=== PATIENT | male | born 1955 | race Asian ===

== ENCOUNTER 2020-12-14 11:25 | Inpatient (IN) | payer OTHER, SELFPAY ==
--- NOTE | 2020-12-14 12:11 | ER ---
Nurse's Notes [facility] Name: Meir Narayanan Age: 65 yrs Sex: Male : 1955 Arrival Date: 12/14/2020 Time: 11:38 Bed 16 Private MD: Diagnosis: ST elevation (STEMI) myocardial infarction of unspecified site-Anterolateral Presentation: 12/14 12:07 Acuity: DALILA 1 ss 12:07 Chief complaint: EMS states: "pt reported passing out prior to arrival while fishing. jd3 he is reporting chest pain.". Coronavirus screen: At this time, the client does not indicate any symptoms associated with coronavirus-19. Ebola Screen: Patient negative for fever greater than or equal to 101.5 degrees Fahrenheit, and additional compatible Ebola Virus Disease symptoms. Initial Sepsis Screen: Does the patient meet any 2 criteria? No. Patient's initial sepsis screen is negative. Does the patient have a suspected source of infection? No. Patient's initial sepsis screen is negative. Risk Assessment: Do you want to hurt yourself or someone else? Patient reports no desire to harm self or others. Onset of symptoms was December 14, 2020. 12:07 Method Of Arrival: EMS: [facility] jd3 Historical: - Allergies: 12:27 No Known Allergies; jd3 - PMHx: 12:27 prostate cancer; jd3 - Immunization history:: Adult Immunizations unknown. - Family history:: not pertinent. - Social history:: Smoking status: unknown. - History obtained from: EMS. Screenin:31 Abuse screen: Denies threats or abuse. Nutritional screening: No deficits noted. jd3 Tuberculosis screening: No symptoms or risk factors identified. Fall Risk IV access (20 points). Ambulatory Aid- None/Bed Rest/Nurse Assist (0 pts). Gait- Normal/Bed Rest/Wheelchair (0 pts) Mental Status- Oriented to own ability (0 pts). Total Valdez Fall Scale indicates No Risk (0-24 pts). Assessment: 12:07 Reassessment: Dr. Singh on phone with Dr. Stewart at this time discussing plan of care. ss 12:07 General: Appears uncomfortable, Behavior is cooperative, anxious, restless. Pain: jd3 Complains of pain in chest. Neuro: Level of Consciousness is awake, alert, obeys commands, Oriented to person, place, time, situation. Cardiovascular: Capillary refill Rhythm is irregular. Respiratory: Reports shortness of breath at rest Airway is patent Respiratory effort is even, unlabored, Respiratory pattern is regular, symmetrical. GI: No signs and/or symptoms were reported involving the gastrointestinal system. : No signs and/or symptoms were reported regarding the genitourinary system. EENT: No signs and/or symptoms were reported regarding the EENT system. Derm: Skin is intact, Skin is diaphoretic, Skin is normal, Skin temperature is warm. Musculoskeletal: Circulation, motion, and sensation intact. Range of motion: intact in all extremities. 12:15 Reassessment: Patient and/or family updated on plan of care and expected duration. Pain jd3 level reassessed. Patient is alert, oriented x 3, equal unlabored respirations, skin warm/dry/pink. Patient states feeling better. 12:23 Reassessment: Patient and/or family updated on plan of care and expected duration. Pain jd3 level reassessed. Patient is alert, oriented x 3, equal unlabored respirations, skin warm/dry/pink. worm farm laborer team at bedside Patient states symptoms have improved. 12:38 Reassessment: Patient and/or family updated on plan of care and expected duration. Pain jd3 level reassessed. Patient is alert, oriented x 3, equal unlabored respirations, skin warm/dry/pink. pt to worm farm laborer with worm farm laborer nurse. Vital Signs: 12:09 BP 119 / 82; Pulse 71; Resp 20; Temp 98.0(O); Pulse Ox 100% ; Weight 89.1 kg; Height 5 ss ft. 10 in. (177.80 cm); 12:30 BP 125 / 82; Pulse 67; Resp 20 S; Pulse Ox 99% on R/A; jd3 12:09 Body Mass Index 28.18 (89.10 kg, 177.80 cm) ED Course: 11:38 Patient arrived in ED. ss 11:39 Bhavin Stewart MD is Attending Physician. rn 11:51 Juan Gallagher RN is Primary Nurse. jd3 12:07 Triage completed. ss 12:07 Maintain EMS IV. Dressing intact. Good blood return noted. Site clean \\T\\ dry. Gauge \\T\\ ramo 3 site: 20 G right AC. 12:08 Patient has correct armband on for positive identification. Placed in gown. Bed in low mh5 position. Call light in reach. Side rails up X2. Warm blanket given. Pillow given. monitoring and evaluation advisor on. Pulse ox on. NIBP on. 12:08 Missed attempt(s): 20 gauge in left antecubital area. 5 12:08 Initial lab(s) drawn, by ED staff, sent to lab. EKG done, by ED staff, reviewed by 5 Bhavin Stewart MD. 12:09 Arm band placed on right wrist. ss 12:10 Jaylen Purvis is Hospitalizing Provider. rn 12:14 Inserted saline lock: 22 gauge in left forearm, using aseptic technique. mb4 12:16 XRAY Chest (1 view) In Process Unspecified. EDMS 12:39 No provider procedures requiring assistance completed. Patient admitted, IV remains in jd3 place. Administered Medications: 12:07 Drug: Aspirin Chewable Tablet 324 mg Route: PO; jd3 12:40 Follow up: Response: No adverse reaction jd3 12:09 CANCELLED (Duplicate Order): Metoprolol TARTRATE 50 mg PO once rn 12:09 Drug: Metoprolol 25 mg Route: PO; jd3 12:40 Follow up: Response: No adverse reaction jd3 12:10 Drug: NS 0.9% 500 ml Route: IV; Rate: bolus; Site: right antecubital; jd3 12:40 Follow up: Response: No adverse reaction; IV Status: Completed infusion; IV Intake: jd3 500ml 12:10 Drug: Heparin ([place]-Bolus No thrombolytic) - HEParin 60 units/kg {Co-Signature: ld1 jd3 (Barbara Crawford RN).} Route: IVP; Site: right antecubital; 12:40 Follow up: Response: No adverse reaction jd3 12:10 Drug: Heparin ([place] Drip) 12 units/kg/hr - (HEParin 85062 units, D5W 500 ml) jd3 {Co-Signature: ld1 (Barbara Crawford RN).} Route: IV; Rate: calculated rate; Site: right antecubital; 12:40 Follow up: Response: No adverse reaction; IV Status: Infusion continued upon admission jd3 12:11 Drug: fentaNYL (PF) 50 mcg Route: IVP; Site: left forearm; jd3 12:40 Follow up: Response: No adverse reaction; RASS: Alert and Calm (0) jd3 12:11 Drug: Zofran (Ondansetron) 4 mg Route: IVP; Site: left forearm; jd3 12:40 Follow up: Response: No adverse reaction jd3 Intake: 12:40 IV: 500ml; Total: 500ml. jd3 Outcome: 12:11 Decision to Hospitalize by Provider. rn 12:38 Patient left the ED. jd3 12:39 Admitted to Financial Sales Professional accompanied by nurse, via stretcher, on monitor, with chart, Other jd3 report given to Ramandeep Talbot RN 12:39 Condition: stable 12:39 Instructed on the need for admit. Signatures: Dispatcher [employer] EDBhavin Truong MD MD rn Smirch, Shelby, RN RN ss Martinez, [facility] Juan Gallagher RN RN jd3 Baxter, Mackenzie 4 Barbara Crawford RN ld1 Corrections: (The following items were deleted from the chart) 12:30 12:23 Reassessment: worm farm laborer team at bedside jd3 jd3
[2020-12-14 12:12] LABS: Absolute Lymphocytes (CBC) 0.7 K/uL (0.7-4.9); Basophils % 0.2 % (0-1.3); Hematocrit 44.2 % (39.6-49.0); Lymphocytes % 5.7 % (15.3-44.8); MPV 7.6 fL (7.6-11.3); RBC Red Blood Cell Count 5.07 M/uL (4.33-5.43)
--- NOTE | 2020-12-14 12:12 | EDPHYS ---
Physician Documentation [facility] Name: Meir Narayanan Age: 65 yrs Sex: Male : 1955 Arrival Date: 12/14/2020 Time: 11:38 Bed 16 Private MD: ED Physician Bhavin Stewart HPI: 12/14 11:44 This 65 yrs old Male presents to ER via Unassigned with complaints of Syncope. rn 11:44 The patient has experienced syncope. Onset: The symptoms/episode began/occurred just rn prior to arrival. Duration: This was a single episode. Context: occurred outdoors, . Associated injury: The patient did not suffer any apparent associated injury. Current symptoms: Chest pain. Unable to obtain HPI due to a language barrier being present. It is unknown whether or not the patient has had similar symptoms in the past. It is unknown whether or not the patient has recently seen a physician. Brought in by EMS, per family who is interpreting at the scene, patient had a syncopal episode and complained of chest pain while fishing. Unknown previous medical problems or medications. Patient complains only of chest pain at this moment and states does not speak Spanish.. Historical: - Allergies: 12:27 No Known Allergies; jd3 - PMHx: 12:27 prostate cancer; jd3 - Immunization history:: Adult Immunizations unknown. - Family history:: not pertinent. - Social history:: Smoking status: unknown. - History obtained from: EMS. ROS: 11:44 Unable to obtain ROS due to patient's inability to understand questions. rn Exam: 11:44 Constitutional: This is a well developed, well nourished patient who is awake, alert, rn moaning and grabbing central chest Head/Face: Normocephalic, atraumatic. Eyes: Pupils equal round and reactive to light, extra-ocular motions intact. Lids and lashes normal. Conjunctiva and sclera are non-icteric and not injected. Cornea within normal limits. Periorbital areas with no swelling, redness, or edema. ENT: Dry mucous membranes Chest/axilla: Normal chest wall appearance and motion. Nontender with no deformity. No lesions are appreciated. Cardiovascular: Regular rate and rhythm. No pulse deficits. Respiratory: No increased work of breathing, no retractions or nasal flaring. Abdomen/GI: Soft, non-tender, nondistended Skin: Warm, dry MS/ Extremity: Pulses equal, no cyanosis. Neurovascular intact. Full, normal range of motion. Equal circumference. Neuro: Awake and alert, GCS 15 Vital Signs: 12:09 BP 119 / 82; Pulse 71; Resp 20; Temp 98.0(O); Pulse Ox 100% ; Weight 89.1 kg; Height 5 ss ft. 10 in. (177.80 cm); 12:30 BP 125 / 82; Pulse 67; Resp 20 S; Pulse Ox 99% on R/A; jd3 12:09 Body Mass Index 28.18 (89.10 kg, 177.80 cm) ss MDM: 11:39 Patient medically screened. rn 12:01 ED course: Pt with STEMI on ECG, paging cardiology. . rn 12:06 Differential Diagnosis: cardiac arrhythmia, STEMI, NSTEMI, dissection. ED course: rn Drophammer Operator line used patient reports substernal chest pain, nonradiating not improving, no known history of KS, no blood thinners.. 12:09 Data reviewed: vital signs, nurses notes, EKG, and as a result, I will admit patient. rn Counseling: I had a detailed discussion with the patient and/or guardian regarding: the historical points, exam findings, and any diagnostic results supporting the discharge/admit diagnosis, the need for further work-up and treatment in the hospital. ED course: Consulted with Dr. Willoughby, notified of STEMI, is activating Benefits Consulting Analyst right now, requests aspirin beta-gabe and heparin, does not want Plavix at this time.. 12:10 Admission orders: after a detailed discussion of the patient's condition and case, the buttermaker continuous churn orders are written by me. 12:12 ED course: Notify Dr. Purvis of admission, patient going to Benefits Consulting Analyst right now with Dr. rigoberto Willoughby. 12:36 ED course: Patient currently pain-free, awaiting Benefits Consulting Analyst. rn 12/14 11:43 Order name: Basic Metabolic Panel rn 12/14 11:43 Order name: CBC with Diff rn 12/14 11:43 Order name: LFT's rn 12/14 11:43 Order name: Magnesium rn 12/14 11:43 Order name: NT PRO-BNP rn 12/14 11:43 Order name: PT-INR; Complete Time: 12:27 rn 12/14 11:43 Order name: Troponin (emerg Dept Use Only) rn 12/14 11:43 Order name: XRAY Chest (1 view); Complete Time: 12:27 rn 12/14 11:43 Order name: EKG; Complete Time: 11:44 rn 12/14 11:43 Order name: Cardiac monitoring; Complete Time: 12:32 rn 12/14 11:43 Order name: EKG - Nurse/Tech; Complete Time: 12:32 rn 12/14 11:43 Order name: IV Saline Lock; Complete Time: 12:32 rn 12/14 11:43 Order name: Labs collected and sent; Complete Time: 12:32 rn 12/14 11:43 Order name: O2 Per Protocol; Complete Time: 11:52 rn 12/14 11:43 Order name: O2 Sat Monitoring; Complete Time: 11:52 rn Administered Medications: 12:07 Drug: Aspirin Chewable Tablet 324 mg Route: PO; jd3 12:40 Follow up: Response: No adverse reaction jd3 12:09 CANCELLED (Duplicate Order): Metoprolol TARTRATE 50 mg PO once rn 12:09 Drug: Metoprolol 25 mg Route: PO; jd3 12:40 Follow up: Response: No adverse reaction jd3 12:10 Drug: NS 0.9% 500 ml Route: IV; Rate: bolus; Site: right antecubital; jd3 12:40 Follow up: Response: No adverse reaction; IV Status: Completed infusion; IV Intake: jd3 500ml 12:10 Drug: Heparin ([place]-Bolus No thrombolytic) - HEParin 60 units/kg {Co-Signature: ld1 jd3 (Barbara Crawford RN).} Route: IVP; Site: right antecubital; 12:40 Follow up: Response: No adverse reaction jd3 12:10 Drug: Heparin ([place] Drip) 12 units/kg/hr - (HEParin 79730 units, D5W 500 ml) jd3 {Co-Signature: ld1 (Barbara Crawford RN).} Route: IV; Rate: calculated rate; Site: right antecubital; 12:40 Follow up: Response: No adverse reaction; IV Status: Infusion continued upon admission jd3 12:11 Drug: fentaNYL (PF) 50 mcg Route: IVP; Site: left forearm; jd3 12:40 Follow up: Response: No adverse reaction; RASS: Alert and Calm (0) jd3 12:11 Drug: Zofran (Ondansetron) 4 mg Route: IVP; Site: left forearm; jd3 12:40 Follow up: Response: No adverse reaction jd3 Disposition Summary: 12/14/20 12:11 Hospitalization Ordered Hospitalization Status: Inpatient Admission rn Provider: Jaylen Purvis rn Location: Intensive Care Unit rn Condition: Stable rn Problem: new rn Symptoms: are unchanged rn Bed/Room Type: Standard rn Room Assignment: rn Diagnosis - ST elevation (STEMI) myocardial infarction of unspecified site - Anterolateral rn Forms: - Medication Reconciliation Form rn - SBAR form calcine furnace tender time excluding procedures: 12:10 Critical care time: Bedside Care: 30 minutes, Consultation: 5 minutes. Total time: 35 rn minutes Signatures: Dispatcher [employer] EDMS Bhavin Stewart MD MD rn Smirch, Shelby, RN RN ss Davies, Jonathon, RN RN jd3 Barbara Crawford RN ld1 Corrections: (The following items were deleted from the chart) 12:03 11:44 Head Brain Wo Cont+CT.RAD.BRZ ordered. EDMS EDMS 12:03 11:44 Angio Aorta For Dissection+CT.RAD.BRZ ordered. EDMS EDMS 12:09 12:08 Metoprolol TARTRATE 50 mg PO once ordered. rn rn
[2020-12-14 12:21] LABS: Protime INR 0.96
--- NOTE | 2020-12-14 12:24 | RAD REPORT ---
EXAM DESCRIPTION: RAD - Chest Single View - 12/14/2020 12:16 pm CLINICAL HISTORY: CHEST PAIN Chest pain. COMPARISON: No comparisons FINDINGS: Portable technique limits examination quality. Interstitial lung markings are slightly prominent which can be seen in mild interstitial pulmonary ed connor or infection/bronchitis. The heart is mildly prominent in size. No displaced fractures.
[2020-12-14] MEDS ORDERED: HEPARIN/D5W 25,000 UNIT/500 ML BAG IV ONE (12:26)
[2020-12-14] MEDS ORDERED: HEPARIN 5000 UNIT/ML 1 ML VIAL ONE (12:26)
[2020-12-14] MEDS ORDERED: NA CHLORIDE 0.9% 500 ML ONE ×3 (12:26→13:32)
[2020-12-14] MEDS ORDERED: ASPIRIN 81 MG CHEWABLE TABLET ONE (12:26)
[2020-12-14 12:34] LABS: ALT/SGPT 41 U/L (12-78); AST/SGOT 24 U/L (15-37); Albumin 3.8 g/dL (3.4-5.0); Alkaline Phosphatase 55 U/L (45-117); BUN Blood Urea Nitrogen 23 mg/dL (7-18); Bicarbonate 26 mmol/L (21-32); Bilirubin Direct < 0.1 mg/dL (0-0.2); Bilirubin Total 0.4 mg/dL (0.2-1.0); Glucose Level 186 mg/dL (74-106); Magnesium 2.2 mg/dL (1.8-2.4); NT PRO-BNP 98 pg/mL (<125); Potassium 3.8 mmol/L (3.5-5.1); Protein, Total 7.9 g/dL (6.4-8.2); Sodium Level 142 mmol/L (136-145)
[2020-12-14] MEDS ORDERED: FENTANYL CITR 100 MCG/2 ML ONE ×2 (12:34→12:39)
[2020-12-14] MEDS ORDERED: METOPROLOL TAR 25 MG TAB ONE (12:34)
[2020-12-14] MEDS ORDERED: ONDANSETRON 4 MG/2 ML VIAL ONE ×2 (12:34→20:53)
[2020-12-14] MEDS ORDERED: MIDAZOLAM HCL 2 MG/2 ML INJ ONE (12:39)
[2020-12-14] MEDS ORDERED: LIDOCAINE 1% 20 ML MDV ONE (12:40)
[2020-12-14] MEDS ORDERED: NA CHLORIDE 0.9% 50 ML ONE ×2 (12:40→13:32)
[2020-12-14] MEDS ORDERED: ATROPINE SULF 1 MG/10 ML SYR IV ONE (12:40)
[2020-12-14] MEDS ORDERED: HEPA 1000U/500MLS 1,000 UNIT/500 ML BAG IV ONE (12:40)
[2020-12-14 12:42] LABS: Troponin (Emerg Dept Use Only) 0.66 ng/mL (0.0-0.045)
[2020-12-14 12:49] LABS: Blood Morphology Comment NOT SEEN (NOT SEEN); Platelet Estimate ADEQ
[2020-12-14] MEDS ORDERED: propofoL 200 MG/20 ML VIAL IV ONE ×2 (13:29→14:11)
[2020-12-14 14:55] VITALS: BMI 28.1
[2020-12-14] MEDS ORDERED: NITROGLYCERIN 0.4 MG/TAB SL ONE (14:57)
[2020-12-14] MEDS ORDERED: MORPHINE 4 MG/ML SYR ONE ×3 (15:11→20:53)
[2020-12-14] MEDS ORDERED: ACETAMINOPHEN 325 MG TABLET PO PRN (15:45)
[2020-12-14] MEDS ORDERED: NITROGLYCERIN 0.4 MG/TAB SL PRN (15:47)
[2020-12-14] MEDS ORDERED: PRASUGREL (EFFIENT) 10 MG TAB PO ONE (16:00)
[2020-12-14] MEDS ORDERED: MORPHINE 2 MG/ML SYR IV PRN (16:01)
[2020-12-14] MEDS ORDERED: ZOLPIDEM TARTRATE 5 MG TABLET PO PRN ×2 (16:02)
[2020-12-14] MEDS: MORPHINE 4 MG/ML SYR IV PRN ×2 (16:09→20:34)
[2020-12-14] MEDS: ONDANSETRON 4 MG/2 ML VIAL IV PRN ×2 (16:50→22:18)
--- NOTE | 2020-12-14 17:12 | P.HP ---
Certification for Inpatient Patient admitted to: Inpatient With expected LOS: >2 Midnights Practitioner: I am a practitioner with admitting privileges, knowledge of patient current condition, hospital course, and medical plan of care. Services: Services provided to patient in accordance with Admission requirements found in Title 42 Section 412.3 of the Code of Federal Regulations Patient History Date of Service: 12/14/20 Reason for admission: Chest pain History of Present Illness: 65-year-old Mandarin speaking gentleman was brought to the emergency department due to weakness and chest pain. Workup in the emergency department revealed STEMI. Patient was sent to cardiac catheterization. Patient noted to have or occlusion of the LAD which was stented. Patient seen after cardiac catheterization. He is complaining of mild chest pain. Vitals are stable. Allergies No Known Allergies Allergy (Unverified 12/14/20 13:22) - Past Medical/Surgical History Has patient received pneumonia vaccine in the past: No Diabetic: No -: HTN -: HLD -: Prediabetic -: For prostate cancer -: kidney stone removal -: Prostate surgery - Family History Father -: Hypertension, Other (see notes) Notes: prostate issues Mother History Unknown: Yes - Social History Smoking Status: Former smoker Alcohol use: No CD- Drugs: No Place of Residence: Home Review of Systems Other: Except as documented, all other systems reviewed and negative. Physical Examination - Vital Signs Temperature: 97.8 F Blood Pressure: 125/85 Pulse: 81 Respirations: 16 Pulse Ox (%): 99 - Physical Exam General: Alert, In no apparent distress, Oriented x3 HEENT: Normocephalic, PERRLA, Mucous membr. moist/pink, EOMI, Sclerae nonicteric Neck: Supple, JVD not distended Respiratory: Clear to auscultation bilaterally, Normal air movement Cardiovascular: No edema, Regular rate/rhythm, Normal S1 S2, No murmurs Gastrointestinal: Normal bowel sounds, Soft and benign, Non-distended, No tenderness Musculoskeletal: No swelling, No tenderness Integumentary: No rashes, No erythema Neurological: Normal strength at 5/5 x4 extr, Cranial nerves 3-12 intact Lymphatics: No axilla or inguinal lymphadenopathy - Studies Laboratory Data (last 24 hrs) 12/14/20 12:01: PT 11.0, INR 0.96 12/14/20 12:01: WBC 12.70 H, Hgb 14.7, Hct 44.2, Plt Count 228 12/14/20 12:01: Sodium 142, Potassium 3.8, BUN 23 H, Creatinine 1.09, Glucose 186 H, Magnesium 2.2, Total Bilirubin 0.4, AST 24, ALT 41, Alkaline Phosphatase 55 Assessment and Plan - Problems (Diagnosis) (1) STEMI (ST elevation myocardial infarction) Current Visit: Yes Status: Acute (2) Hypertension Current Visit: Yes Status: Acute - Plan Status post cardiac catheterization. Patient on DPT. Beta-gabe as heart rate and blood pressure will tolerate. Cardiology to follow. Patient is currently normotensive. Monitor blood sugar given history of pre diabetes. Monitor CBC and blood chemistry and optimize electrolytes. - Advance Directives Does patient have a Living Will: No Does patient have a Durable POA for Healthcare: No
[2020-12-14] MEDS ORDERED: ATORVASTATIN 20 MG TAB ONE (19:38)
[2020-12-14] MEDS: INSULIN -REGULAR HUMAN 50 UNIT/0.5 ML ML SQ SCH (20:10)
[2020-12-14] MEDS ORDERED: INSULIN -REGULAR HUMAN 50 UNIT/0.5 ML ML ONE (20:37)
[2020-12-14] MEDS ORDERED: ATORVASTATIN 20 MG TAB PO SCH ×2 (21:00)
[2020-12-14] MEDS ORDERED: BENZONATATE 100 MG CAP PO PRN (21:56)
[2020-12-14] MEDS ORDERED: BENZONATATE 100 MG CAP PO ONE (22:21)
[2020-12-15 04:33] LABS: Absolute Lymphocytes (CBC) 0.7 K/uL (0.7-4.9); Basophils % 0.1 % (0-1.3); Lymphocytes % 4.8 % (15.3-44.8); RBC Red Blood Cell Count 5.05 M/uL (4.33-5.43)
[2020-12-15 05:03] LABS: Albumin 3.1 g/dL (3.4-5.0); Bilirubin Total 0.5 mg/dL (0.2-1.0); Potassium 4.1 mmol/L (3.5-5.1); Protein, Total 7.1 g/dL (6.4-8.2); Thyroid Stimulating Hormone 0.096 uIU/mL (0.360-3.740)
[2020-12-15] MEDS: MORPHINE 4 MG/ML SYR IV PRN ×2 (05:13→21:13)
[2020-12-15] MEDS ORDERED: MORPHINE 4 MG/ML SYR ONE (05:34)
[2020-12-15 07:19] LABS: Magnesium 2.1 mg/dL (1.8-2.4); Phosphorus 3.5 mg/dL (2.5-4.9)
[2020-12-15] MEDS: INSULIN -REGULAR HUMAN 50 UNIT/0.5 ML ML SQ SCH ×4 (07:30→21:00)
[2020-12-15] MEDS: PRASUGREL (EFFIENT) 10 MG TAB PO SCH (07:55)
[2020-12-15] MEDS: ASPIRIN EC 81 MG TAB PO SCH (07:55)
[2020-12-15] MEDS ORDERED: ASPIRIN EC 81 MG TAB PO ONE (08:13)
[2020-12-15] MEDS ORDERED: PRASUGREL (EFFIENT) 10 MG TAB ONE (08:13)
--- NOTE | 2020-12-15 08:39 | RAD REPORT ---
EXAM DESCRIPTION: CT - Abdomen Pelvis Wo Contrast - 12/15/2020 8:29 am CLINICAL HISTORY: Abdominal pain. Elevated liver enzymes COMPARISON: None TECHNIQUE: Computed axial tomography of the abdomen and pelvis was obtained. IV and oral contrast we re not requested. All CT scans are performed using dose optimization technique as appropriate and may include automated exposure control or mA/KV adjustment according to patient size. FINDINGS: The evaluation of solid organs, vessels and bowel is limited secondary to the lack of con trast administration. The liver, spleen, pancreas, left adrenal and kidneys appear grossly normal. A small nodule right adr enal gland may represent adenoma The appendix is normal. There is no evidence of diverticulitis. Small bilateral pleural effusions. Vicarious excretion of contrast within the gallbladder. Small inguinal hernias contain fat. Small duo denal diverticulum IMPRESSION: Small bilateral pleural effusions No acute abdominal abnormality is displayed.
[2020-12-15] MEDS ORDERED: ASPIRIN 81 MG CHEWABLE TABLET PO SCH (09:00)
--- NOTE | 2020-12-15 10:11 | P.PN ---
Subjective Date of Service: 12/15/20 Chief Complaint: Chest pain Patient complaining of mild chest pain and right upper quadrant pain. Vitals are stable. He denies shortness of breath. Physical Examination - Vital Signs Temperature: 98.2 F Blood Pressure: 106/80 Pulse: 75 Respirations: 18 Pulse Ox (%): 98 - Physical Exam General: Alert, In no apparent distress, Oriented x3 HEENT: Mucous membr. moist/pink, EOMI, Sclerae nonicteric Neck: Supple, JVD not distended Respiratory: Clear to auscultation bilaterally, Normal air movement Cardiovascular: No edema, Regular rate/rhythm, Normal S1 S2 Capillary refill: <2 Seconds Gastrointestinal: Normal bowel sounds, Soft and benign, Non-distended, Tenderness (Right upper quadrant) Musculoskeletal: No swelling, No tenderness Integumentary: No rashes, No erythema Neurological: Normal gait, Normal strength at 5/5 x4 extr, Cranial nerves 3-12 intact - Studies Laboratory Data (last 24 hrs) 12/14/20 12:01: PT 11.0, INR 0.96 12/14/20 12:01: WBC 12.70 H, Hgb 14.7, Hct 44.2, Plt Count 228 12/14/20 12:01: Sodium 142, Potassium 3.8, BUN 23 H, Creatinine 1.09, Glucose 186 H, Magnesium 2.2, Total Bilirubin 0.4, AST 24, ALT 41, Alkaline Phosphatase 55 Assessment And Plan - Current Problems (Diagnosis) (1) STEMI (ST elevation myocardial infarction) Current Visit: Yes Status: Acute (2) Hypertension Current Visit: Yes Status: Acute - Plan Status post cardiac catheterization. Complete occlusion of the LAD noted during cardiac catheterization. Per Dr. Willoughby, patient had an episode of hypotension during the cardiac catheterization. Liver enzymes elevated today. This is likely secondary to liver shock. CT abdomen and pelvis shows no structural liver pathology. Monitor LFT. Holding statin due to elevated LFT. Patient on DPT. Prasuguel, Aspirin. Beta-gabe as heart rate and blood pressure will tolerate. NTG p.r.n. Post cath echocardiogram ordered by Dr. Willoughby Cardiology to follow. Vital stable. Monitor blood sugar given history of pre diabetes. Monitor CBC and blood chemistry and optimize electrolytes. TSH is low. Check free T4.
[2020-12-15 11:54] LABS: Phosphorus 2.5 mg/dL (2.5-4.9)
[2020-12-15] MEDS ORDERED: INSULIN -REGULAR HUMAN 50 UNIT/0.5 ML ML ONE (12:11)
--- NOTE | 2020-12-15 12:30 | CON ---
Admitted to the emergency room on 12/14/2020 after syncope and an acute anterolateral myocardial infa rction. History Of Present Illness: The patient is a 65-year-old male not known to the system, was fishing. He lives in [place] and [place] [facility] [place]. Came in with syncope after th at had severe chest pain. In the emergency room ST elevation were noted and I was called emergently and we decided to take the patient emergently to the fence laborer for acute intervention. Allergies: NONE. Past Medical History: Include prostate cancer. Review of Systems: Negative. Social History: Negative. Family History: Negative. These are information that were gotten from the nephew because he did not speak any Khmer. Physical Examination: Vital Signs: Blood pressure 119/80, pulse was 71 with a lot of arrhythmias with PVCs, prolonged vent ricular tachycardia. Respiratory rate was 20. He was afebrile. O2 saturation was 100%. HEENT: Negative. Neck: Supple with no bruit. Chest: Clear. Cardiac: Reveals regular rhythm and rate with ectopy. No gallops or rubs. Abdomen: Benign. Extremities: Revealed no clubbing, cyanosis, or edema. Diagnostic Data: His EKG showed acute anterolateral NJ. Creatinine was 1.09. White count was 12. Troponin was 0.66. His cholesterol was 218, triglycerides 157. His LDL was 131. Impression And Plan: Acute anterolateral myocardial infarction. We will take the patient to the cat h lab emergently and proceed with emergency intervention and catheterization. He will be afterwards on aspirin, Plavix or Effient, statin, beta gabe, low-dose RENETTA inhibitor. After the catheterizati on, we will also do an echocardiogram on him and we will continue to follow him. DANIEL/FABIÁN Voice ID: [id number] Report ID: [id number]
--- NOTE | 2020-12-15 12:31 | PN ---
Date of Progress Note: 12/15/2020 The patient had an acute anterolateral IA, status post emergent intervention with 2 LAD stents in the ostium all the way to the mid LAD. Both of those stents were 20 mm long. He had a lot of thrombus, completely occluded vessel. He tolerated the procedures very well. Had some chest pain afterwards with normal EKG. He may have some pericarditis following the IA. His vital signs are stable, afebri le. O2 saturation is good. His examination is normal. There is an echocardiogram pending today to rule out pericarditis and to check his ejection fraction. He also needs to have his liver function o bserved. His liver enzymes were very high and were normal when he came in. I am assuming this is se condary to initial hypotension and shock because he had a syncopal episode after the IA and assumed h e had low blood pressure. I am hoping the liver functions exam will eventually improve. He will def initely need to be on aspirin, low-dose beta gabe, low-dose RENETTA inhibitor, Plavix or Effient, and statin when he goes home. I would like to keep him here at least 1 more day. DANIEL/FABIÁN Voice ID: [id number] Report ID: [id number]
--- NOTE | 2020-12-15 13:38 | OP ---
Date of Procedure: 12/14/2020 Surgeon: Hussein Willoughby MD Clam Sorter: William Ricks and as well as Anesthesia was present on the case. The patient received Angiomax and aspirin. He received Effient 60 mg. When he wakes up, he will be transferred back to the ICU for further observation. He did have Angio-Seal closure device placed in the right groin after the catheterization was done. Angiography in that region was normal. We woul d hope to send him home in a day or two on aspirin, Plavix, RENETTA inhibitor, statin and low-dose beta-b locker. I will get an echocardiogram on him in the morning. Procedure: Emergency heart catheterization with emergency intervention, angioplasty and stent of the ostial LAD all the way to the mid LAD. Indication: Acute anterior TN with syncope. The patient is 65. No previous past medical history ex cept for prostate cancer. Lives in [place]. Came in after syncope. An EKG showing ST elevation of 4 to 5 mm in the anterolateral lead. He was actually fishing when that happened. He had chest pain and then syncope. 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 He was unable to speak Panamanian language. W e had to use the robot for translation. He was having chest pain. He was having short runs of VT, slightly hypotensive with severe chest piyush n. He could not tolerate the Versed and fentanyl. He was actually getting more agitated, so we had to get general anesthesia to give him Brevital, I believe for sedation. Nevertheless a 6-Ukrainian paula th was introduced in the right common femoral artery. He had a left main injection showing complete occlusion of the LAD from the ostium with normal circumflex. RCA was not injected secondary to the a cuity of the case and his agitation. After the initial injection, I was able to pass a cougar wire t hrough the ostium of the LAD all the way to the distal LAD. Multiple dilatation was done with 2.5 x 15 mm Emerge balloon on mid LAD all the way to ostium. Final angiography there showed severe stenosi s in the proximal to mid LAD with a long stenosis with some thrombus. He received some intracoronary and nitroglycerin and then we proceeded with two 20 mm long 3.0 synergy stent that overlap from the ostium of the LAD all the way past the first diagonal of the LAD with outstanding 0% residual. The p atient eventually was sedated by general anesthesia. He tolerated the procedure well. No complicati ons. Blood Loss: 10 to 15 cc. Total Conscious Sedation: 90 minutes. Hand Lacer was myself. DANIEL/FABIÁN Voice ID: [id number] Report ID: [id number]
[2020-12-16 05:29] VITALS: O2SAT 96
[2020-12-16 06:07] LABS: Absolute Lymphocytes (CBC) 0.8 K/uL (0.7-4.9); Basophils % 0.1 % (0-1.3); Hematocrit 37.5 % (39.6-49.0); Lymphocytes % 8.6 % (15.3-44.8); MPV 8.4 fL (7.6-11.3); RBC Red Blood Cell Count 4.35 M/uL (4.33-5.43)
[2020-12-16 06:19] LABS: Bilirubin Total 0.6 mg/dL (0.2-1.0); Potassium 3.5 mmol/L (3.5-5.1); Protein, Total 6.6 g/dL (6.4-8.2)
[2020-12-16 06:22] VITALS: TEMP 98.1
[2020-12-16] MEDS: INSULIN -REGULAR HUMAN 50 UNIT/0.5 ML ML SQ SCH (07:30)
[2020-12-16 08:51] VITALS: BP 105/61
--- NOTE | 2020-12-16 08:52 | ECHO ---
HEIGHT: 5 ft 10 in WEIGHT: 196 lb 4.8 oz DATE OF STUDY: 12/15/[address]: Hussein Willoughby MD 2-DIMENSIONAL: YES M.MODE: YES DOPPLER: YES COLOR FLOW: YES TDS: PORTABLE: YES DEFINITY: BUBBLE STUDY: DIAGNOSIS: POST ST ELEVATION MYOCARDIAL INFARCTION CARDIAC HISTORY: CATHERIZATION: YES SURGERY: NO PROSTHETIC VALVE: NO PACEMAKER: NO MEASUREMENTS (cm) DIASTOLIC (NORMALS) SYSTOLIC (NORMALS) IVSd 1.5 (0.6-1.2) LA Diam 3.6 (1.9-4.0) LVEF 30-35% LVIDd 4.8 (3.5-5.7) LVIDs 3.4 (2.0-3.5) %FS 29% LVPWd 1.5 (0.6-1.2) Ao Diam 3.2 (2.0-3.7) 2 DIMENSIONAL ASSESSMENT: RIGHT ATRIUM: NORMAL LEFT ATRIUM: NORMAL RIGHT VENTRICLE: NORMAL LEFT VENTRICLE: LEFT VENTRICULAR HYPERTROPHY TRICUSPID VALVE: MILD TRICUSPID REGURGITATION MITRAL VALVE: MILD MITRAL REGURGITATION PULMONIC VALVE: NORMAL AORTIC VALVE: NORMAL PERICARDIAL EFFUSION: NONE AORTIC ROOT: NORMAL LEFT VENTRICULAR WALL MOTION: ANTEROSEPTAL, ANTERIOR AND APICAL AKINESIS DOPPLER/COLOR FLOW: MILD MITRAL REGURGITATION, MILD TRICUSPID REGURGITATION COMMENTS: MODERATELY DEPRESSED LEFT VENTRICULAR EJECTION FRACTION 30-35%. ANTEROSEPTAL/ ANTERIOR AND APICAL AKINESIS. MODERATE DIASTOLIC DYSFUNCTION. MODERATE LEFT VENTRICULAR HYPERTROPHY. MILD MITRAL REGURGITATION, MILD TRICUSPID REGURGITATION. RIGHT VENTRICULAR SYSTOLIC PRESSURE OF 45-50mmHg TECHNOLOGIST: OSKAR LORENZO
[2020-12-16] MEDS ORDERED: POTASSIUM CL SA 10 MEQ TAB PO ONE (09:00)
[2020-12-16] MEDS: PRASUGREL (EFFIENT) 10 MG TAB PO SCH (09:05)
[2020-12-16] MEDS: ASPIRIN EC 81 MG TAB PO SCH (09:05)
--- NOTE | 2020-12-16 10:24 | P.DS ---
Admission Date: 12/14/20 Discharge Date: 12/16/20 Disposition: ROUTINE DISCHARGE Discharge Condition: FAIR Reason for Admission: Chest pain - Problems (1) STEMI (ST elevation myocardial infarction) Status: Acute (2) Hypertension Status: Acute Brief History of Present Illness: 65-year-old Mandarin speaking gentleman was brought to the emergency department due to weakness and chest pain. Workup in the emergency department revealed STEMI. Patient was sent to cardiac catheterization. Patient noted to have or occlusion of the LAD which was stented. Patient seen after cardiac catheterization. Hospital Course: Patient monitored after cardiac catheterization. He was placed on the Effient, aspirin. Echocardiogram showed EF of 30-35%, no pericardial effusion. Patient blood pressure was low which limited the use of RENETTA inhibitor or beta blockers. His liver enzymes became markedly elevated. Dr. Willoughby reports an episode of hypotension during the cardiac catheterization I suspect ischemic hepatitis causing the elevated LFT. LFT trended down. CT abdomen and pelvis was unremarkable. Patient clinically stable and cleared for discharge. 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 Vital Signs/Physical Exam: Temp Pulse Resp BP Pulse Ox 98.1 F 77 17 105/61 96 12/16/20 08:00 12/16/20 08:00 12/16/20 08:00 12/16/20 08:00 12/16/20 08:00 General: Alert, In no apparent distress, Oriented x3 HEENT: Mucous membr. moist/pink Neck: JVD not distended Respiratory: Clear to auscultation bilaterally, Normal air movement Cardiovascular: No edema, Regular rate/rhythm, Normal S1 S2 Gastrointestinal: Soft and benign, Non-distended Musculoskeletal: No swelling, No tenderness Integumentary: No rashes, No erythema Neurological: Normal speech, Normal strength at 5/5 x4 extr Laboratory Data at Discharge: WBC 9.20 K/uL (4.3-10.9) D 12/16/20 05:37 Hgb 12.8 g/dL (13.6-17.9) L 12/16/20 05:37 Hct 37.5 % (39.6-49.0) L 12/16/20 05:37 Plt Count 180 K/uL (152-406) 12/16/20 05:37 PT 11.0 SECONDS (9.5-12.5) 12/14/20 12:01 INR 0.96 12/14/20 12:01 Sodium 143 mmol/L (136-145) 12/16/20 05:37 Potassium 3.5 mmol/L (3.5-5.1) 12/16/20 05:37 BUN 26 mg/dL (7-18) H 12/16/20 05:37 Creatinine 0.92 mg/dL (0.55-1.3) 12/16/20 05:37 Glucose 132 mg/dL (74-106) H 12/16/20 05:37 Phosphorus 2.5 mg/dL (2.5-4.9) 12/15/20 10:39 Magnesium 2.0 mg/dL (1.8-2.4) 12/15/20 10:39 Total Bilirubin 0.6 mg/dL (0.2-1.0) 12/16/20 05:37 AST 217 U/L (15-37) H D 12/16/20 05:37 ALT 72 U/L (12-78) 12/16/20 05:37 Alkaline Phosphatase 46 U/L (45-117) 12/16/20 05:37 Triglycerides 157 mg/dL (<150) H 12/15/20 04:15 Cholesterol 218 mg/dL (<200) H 12/15/20 04:15 HDL Cholesterol 56 mg/dL (40-60) 12/15/20 04:15 Cholesterol/HDL Ratio 3.89 12/15/20 04:15 Home Medications: Aspirin [Aspirin EC 81 MG] 81 mg PO DAILY #30 tablet. 12/16/20 Atorvastatin Calcium [Lipitor] 40 mg PO DAILY #30 tablet 12/16/20 Nitroglycerin [Nitrostat*] 0.4 mg SL UD PRN #30 tab 12/16/20 Prasugrel Hydrochloride [Effient*] 10 mg PO DAILY #30 tab 12/16/20 New Medications: Aspirin [Aspirin EC 81 MG] 81 mg PO DAILY #30 tablet. Prasugrel Hydrochloride [Effient*] 10 mg PO DAILY #30 tab Atorvastatin Calcium [Lipitor] 40 mg PO DAILY #30 tablet Nitroglycerin [Nitrostat*] 0.4 mg SL UD PRN #30 tab PRN Reason: Chest pain Physician Discharge Instructions: Exercise regularly, about 30 min 5 days a week. Avoid strenuous work/exercise. Diet: AHA Activity: Ad elmer Followup: NONE,NONE [Primary Care Provider] - 1 Week Hussein Willoughby MD [ACTIVE - CAN ADMIT] - 1-2 Weeks Time spent managing pt's care (in minutes): 38
== END 2020-12-16 10:59 | disposition home or self-care (01) | DRG 247 ==
LOC: ER 11:25 → ERHOLD 12:25 → 2ND 12-15 15:31
PROVIDERS: ADMIT Internal Medicine; ATTEND Internal Medicine
PROC: 027034Z Dilation of Coronary Artery, One Artery with Drug-eluting Intraluminal Device, Percutaneous Approach (ICD-10-PCS; principal; 2020-12-14)
PROC: 4A023N7 Measurement of Cardiac Sampling and Pressure, Left Heart, Percutaneous Approach (ICD-10-PCS; 2020-12-14)
PROC: B2111ZZ Fluoroscopy of Multiple Coronary Arteries using Low Osmolar Contrast (ICD-10-PCS; 2020-12-14)
DX: I21.09 ST elevation (STEMI) myocardial infarction involving other coronary artery of anterior wall (principal); I47.2 Ventricular tachycardia; I10 Essential (primary) hypertension; I95.9 Hypotension, unspecified; E78.5 Hyperlipidemia, unspecified; K75.89 Other specified inflammatory liver diseases; R79.89 Other specified abnormal findings of blood chemistry; Z87.891 Personal history of nicotine dependence; Z85.46 Personal history of malignant neoplasm of prostate; Z79.82 Long term (current) use of aspirin; Z79.899 Other long term (current) drug therapy
CPT/HCPCS: 36415; 71045; 74176; 80048; 80053; 80061; 80076; 82947; 83735; 83880; 84100; 84439; 84443; 84484; 85025; 85347; 85610; 92928; 92941; 93005; 93306; 93454; 99285; C1725; C1877; C1893; J0583; J1644; J2250; J2405; J2704; J3010; J7040